=== PATIENT | female | born 1985 | race Caucasian/White ===

== ENCOUNTER 2019-03-12 17:44 | Emergency (ER) | payer SELFPAY ==
[2019-03-12] MEDS ORDERED: CEPHALEXIN 500 MG CAPSULE PO ONE (18:21)
[2019-03-12] MEDS ORDERED: SULFAMETHOXAZOLE/TRIMETHOPRIM 800-160 MG TABLET PO ONE (18:21)
--- NOTE | 2019-03-12 18:49 | ER Document Report ---
HPI - HPI Patient complains to provider of: Abscess Time Seen by Provider: 03/12/19 18:11 Onset: Yesterday Onset/Duration: Gradual Quality of pain: Achy Pain Level: 3 Context: Patient complains of abscess to the right wrist area. Patient states skin started off as an antibiotic and then infection worsen. Patient does have a history of IV drug use although denies injecting into the site. Patient does complain of chills. No known history of MRSA. Patient reports squeezing purulent drainage from the wound today. Associated Symptoms: Other - Abscess to right wrist. denies: Fever Exacerbated by: Movement Relieved by: Denies Similar symptoms previously: No Recently seen / treated by doctor: No - ROS ROS below otherwise negative: Yes Systems Reviewed and Negative: Yes All other systems reviewed and negative - CONSTITUTIONAL Constitutional: REPORTS: Chills. DENIES: Fever - NEURO Neurology: DENIES: Headache, Weakness - RESPIRATORY Respiratory: DENIES: Trouble Breathing, Coughing - GASTROINTESTINAL Gastrointestinal: DENIES: Nausea, Patient vomiting - REPRODUCTIVE Reproductive: DENIES: : - MUSCULOSKELETAL Musculoskeletal: REPORTS: Extremity pain, Swelling - DERM Skin Color: Erythema Past Medical History - General Information source: Patient - Social History Smoking Status: Current Every Day Smoker Chew tobacco use (# tins/day): No Frequency of alcohol use: Occasional Drug Abuse: Methamphetamine Occupation: None Family History: Reviewed & Not Pertinent Patient has suicidal ideation: No Patient has homicidal ideation: No - Medical History Medical History: Negative Past Surgical History: Reports: Hx Section - Immunizations Hx Diphtheria, Pertussis, Tetanus Vaccination: Yes Vertical Provider Document - CONSTITUTIONAL Agree With Documented VS: Yes Exam Limitations: No Limitations General Appearance: WD/WN, No Apparent Distress - INFECTION CONTROL TRAVEL OUTSIDE OF THE [place] IN LAST 30 DAYS: No - HEENT HEENT: Atraumatic, Normocephalic - NECK Neck: Normal Inspection, Supple - RESPIRATORY Respiratory: Breath Sounds Normal, No Respiratory Distress - CARDIOVASCULAR Cardiovascular: Regular Rate, Regular Rhythm Pulses: Normal: Radial - BACK Back: Normal Inspection - MUSCULOSKELETAL/EXTREMETIES Musculoskeletal/Extremeties: MAEW, FROM, Tender - Right wrist tenderness - NEURO Level of Consciousness: Awake, Alert, Appropriate Motor/Sensory: No Motor Deficit - DERM Integumentary: Warm, Dry, Abscess - Right wrist Course - Re-evaluation Re-evalutation: 03/12/19 Patient with abscess to right wrist, I&D procedure performed. Patient with only a small amount of purulent material drained during procedure. Patient reports squeezing material repeatedly 1 provider not in the room. Patient offered raymond tment for substance abuse. Patient states she is currently receiving treatment through the [facility]. Patient with good range of motion to the wrist, no concern for septic arthritis at this time. - Vital Signs Vital signs: Temp Pulse Resp BP Pulse Ox 98.0 F 107 H 16 128/89 H 100 03/12/19 18:18 03/12/19 17:50 03/12/19 18:18 03/12/19 17:50 03/12/19 18:18 Procedures - Incision and Drainage Right Wrist Type: Simple Anesthetic type: 1% Lidocaine Blade size: 11 I&D procedure: Betadine prep applied Incision Method: Incision made by scalpel Amount/type of drainage: small amount of purulent drainage Discharge - Discharge Clinical Impression: Abscess, wrist, Encounter for incision and drainage procedure Condition: Stable Disposition: HOME, SELF-CARE Instructions: Abscess ([facility]), Cephalexin ([facility]), Post Incision and Drainage, Trimethoprim-Sulfa ([facility]) Additional Instructions: Return immediately for any new or worsening symptoms Followup with your primary care provider, call tomorrow to make a followup appointment Culture is pending, we will call if you need any different treatment Prescriptions: Sulfamethoxazole/Trimethoprim [Bactrim Ds Tablet] 1 each PO BID #20 tablet Mupirocin [Bactroban 2% Ointment 22 gm] 1 applic TP TID #22 gm Cephalexin Monohydrate [Keflex 500 mg Capsule] 500 mg PO Q6H 7 Days capsule Naproxen [Naprosyn 250 Nmg Tablet] 1 tab PO BID #14 tablet Referrals: [facility] [Provider Group] - Follow up as needed
[2019-03-12] MEDS ORDERED: IBUPROFEN 800 MG TABLET PO ONE (19:00)
[2019-03-12 19:49] VITALS: BP 131/84
== END 2019-03-12 19:49 | disposition home or self-care (01) ==
LOC: ER 17:44
DX: L02.413 Cutaneous abscess of right upper limb (principal); F17.200 Nicotine dependence, unspecified, uncomplicated
CPT/HCPCS: 87070; 87075; 87077; 87186; 87205; 99283